=== PATIENT | female | born 1960 | race Caucasian/White ===

== ENCOUNTER 2018-08-03 13:15 | Inpatient (IN) | payer OTHER ==
[2018-08-14] MEDS ORDERED: Tranexamic Acid 1,000 MG/10 ML VIAL ONE ×2 (09:09→13:08)
[2018-08-14] MEDS ORDERED: CEFAZOLIN 2 GM/50 ML BAG ONE (09:09)
[2018-08-14] MEDS ORDERED: Sodium Chloride 0.9% 100 ML ONE (09:09)
[2018-08-14] MEDS ORDERED: Vancomycin HCl 1.5 GM in Sodium Chloride 0.9% 250 ML 300 ML IVPB SCH ×2 (09:30→22:00)
[2018-08-14] MEDS ORDERED: Levofloxacin 500 mg/D5W 100 ml Premix Bag ONE (09:54)
[2018-08-14] MEDS ORDERED: Fentanyl 100 MCG/2 ML VIAL ONE ×3 (10:06→10:35)
[2018-08-14] MEDS ORDERED: Midazolam HCl 2 mg/2 ml Vial ONE ×2 (10:06→10:13)
[2018-08-14] MEDS ORDERED: Bupivacaine PF 0.5% 30 ML VIAL ONE (10:25)
[2018-08-14] MEDS ORDERED: methylPREDNISolone Acetate 40 mg/ml Vial ONE (10:52)
[2018-08-14] MEDS ORDERED: Lidocaine 1% (PF) 30 ML VIAL ONE (10:52)
[2018-08-14] MEDS ORDERED: Ondansetron PF 4 MG/2 ML Vial IVP PRN ×2 (11:16→14:18)
[2018-08-14] MEDS ORDERED: Promethazine HCl 25 MG/ML VIAL IM PRN ×3 (11:16→14:18)
[2018-08-14] MEDS ORDERED: diphenhydrAMINE 25 MG CAP PO PRN (11:16)
[2018-08-14] MEDS ORDERED: Fentanyl 100 MCG/2 ML VIAL SLOW IVP PRN (11:16)
[2018-08-14] MEDS ORDERED: Acetaminophen 325 MG TAB PO PRN (11:16)
[2018-08-14] MEDS ORDERED: traMADol HCl 50 MG TAB PO PRN ×3 (11:16→14:18)
[2018-08-14] MEDS ORDERED: Zolpidem Tartrate 5 MG TAB PO PRN ×2 (11:16→14:18)
[2018-08-14] MEDS ORDERED: HYDROcodone/Acetaminophen 10/325 mg Tablet PO PRN ×3 (11:16→14:18)
[2018-08-14] MEDS ORDERED: SUMAtriptan Succinate 50 MG TAB PO PRN (11:19)
[2018-08-14] MEDS ORDERED: Tranexamic Acid 1,000 MG in Sodium Chloride 0.9% 100 ML IVPB SCH (11:30)
[2018-08-14] MEDS ORDERED: MAGNESIUM 200 MG PO SCH (11:30)
[2018-08-14] MEDS ORDERED: Promethazine HCl 25 MG/ML VIAL SLOW IVP PRN (13:13)
[2018-08-14] MEDS ORDERED: Ondansetron HCl/PF 4 MG/2 ML Vial IVP PRN (13:13)
[2018-08-14] MEDS ORDERED: Bupivacaine 0.25% HCL 30 ML VIAL ONE (13:20)
[2018-08-14] MEDS ORDERED: Ropivacaine 0.5% HCl/PF (150 MG/30 ML VIAL) ONE (13:20)
[2018-08-14] MEDS ORDERED: Ketorolac Tromethamine 30 MG/ML VIAL IVP SCH (14:00)
[2018-08-14] MEDS ORDERED: Ropivacaine HCl/PF 250 ML in Premix Bag 1 BAG NERVE BLCK SCH (14:18)
[2018-08-14] MEDS ORDERED: Fentanyl 100 MCG/2 ML VIAL IV PRN (14:19)
[2018-08-14] MEDS ORDERED: PHENYLEPHRINE-NS 100 MCG/ML 10 ML SYRINGE ONE (14:40)
[2018-08-14] MEDS ORDERED: Dexamethasone 20 MG/5 ML VIAL ONE (14:40)
[2018-08-14] MEDS ORDERED: ePHEDrine/0.9% NaCl/PF SYRINGE 50 mg/10 ml ONE (14:40)
[2018-08-14] MEDS ORDERED: PROPOFOL 200 MG/20 ML VIAL ONE (14:40)
[2018-08-14] MEDS ORDERED: Ondansetron PF 4 MG/2 ML Vial ONE (14:40)
--- NOTE | 2018-08-14 14:45 | OP ---
DATE OF PROCEDURE: 08/14/2018 ASSISTANTS: Jcarlos Buchanan PA PREOPERATIVE DIAGNOSIS: Bilateral knee arthritis with left being worse than the right. POSTOPERATIVE DIAGNOSIS: Bilateral knee arthritis with left being worse than the right. PROCEDURES: 1. Left total knee replacement using [employer] pinless navigation. 2. Right knee corticosteroid injection. ANESTHESIA: The patient had general anesthetic as well as a preoperative block. BLOOD LOSS: Minimal. COMPLICATIONS: None. DISPOSITION: She did go to recovery room in stable condition. IMPLANTS: To the left knee is a triathlon total knee system. The femur was a size 4 cruciate retaining femur. The tibial base plate was size 4 primary tibial base plate. We used a 4 x 9 mm CS X3 tibial bearing and an asymmetric 29 x 9 X3 patella. INDICATIONS: This is a 57-year-old female, who comes in complaining of bilateral knee arthritis with the left being worse than the right. At this time, she want to have her right knee injected and left knee replaced. PROCEDURE IN DETAIL: After verbal consent forms were explained and signed, she was taken to the operating room operative time and at this time was given general anesthetic. Once the level of the anesthesia was appropriate, the right knee was cleaned off with alcohol and 80 mg of Depo-Medrol with local was injected into the right knee without any complication. A Band-Aid was applied. We then turned our attention to the left leg. After all appropriate consent forms were explained and signed, the patient was taken back to the operating room and at this time was given general anesthetic. Once the level of anesthesia was appropriate, a well-padded tourniquet was placed on the leg, and the leg was then prepped and draped in standard surgical fashion. The limb was exsanguinated and tourniquet taken up to 300 mmHg. Midline incision was made with a 10 blade down through the skin and subcutaneous tissue. Bovie electrocautery was used to coagulate any brisk venous bleeding. A new blade was used to make a medial parapatellar arthrotomy. Small subperiosteal release was performed medially and excess fat pad was removed. The knee was flexed up to gain access to the femur. The femur was navigated and distal femoral resection was made. Epicondylar access was used to align our sizing jig and this was pinned in place. 4:1 cutting block was applied and pinned. Anterior and posterior chamfer cuts were then made. We navigated out our proximal tibia and made our proximal tibial resection. Spreaders were used to remove any posterior osteophytes off the back of the femur as well as remaining meniscal tissue. A long alignment edgardo was then used to achieve correct rotation of our tibial baseplate. This was pinned in place. We trialed the polyethylene and a polyethylene gave us full extension and good stability throughout range of motion. Two towel clips and a saw were used to cut our patella. Three lug nuts were drilled and patella was trialed which sat nicely in the trochlear groove. We then drilled our femur and punched our tibia. All components were removed. The knee was thoroughly irrigated and dried. Cement was mixed into the cement gun on the back table. Components were then placed. The knee was held out in full extension until the cement had dried. All excess bone cement was removed. Multiple #2 Vicryl stitches as well as a Quill were used to close our extensor mechanism. 0 Quill followed by a running Monoderm was then used to close the skin. Surgicel glue was then used on the skin. Once this had dried, soft tissue dressing was applied to the limb, tourniquet was let down, and the toes pinked up nicely. The patient was then awakened and taken to the recovery room in stable condition. All counts were correct at the end of the case. The patient did receive preoperative IV antibiotics. The patient was injected with Exparel for postoperative pain relief. Job ID: [id number] [facility]
[2018-08-14 15:38] VITALS: BMI 35.1
[2018-08-14] MEDS: Sodium Chloride 0.9% 1,000 ML IV SCH ×2 (15:59→23:34)
[2018-08-14] MEDS: Ketorolac Tromethamine 30 MG/ML VIAL IVP SCH ×2 (17:01→23:38)
[2018-08-14] MEDS: Aspirin 81 mg Enteric Coated Tablet PO SCH (20:24)
[2018-08-14] MEDS: TROSPIUM 20 MG TABLET PO SCH (20:26)
--- NOTE | 2018-08-15 00:43 | CON ---
DATE OF CONSULTATION: PRIMARY CARE PHYSICIAN: Alexey Carpio MD. PRIMARY TEAM: Orthopedics, Dr. Walters. REASON FOR CONSULTATION: Medical management. HISTORY OF PRESENT ILLNESS: This is a 57-year-old white female with history of progressive bilateral knee arthritis interfering with daily activity. In spite of recent weight loss after bariatric surgery, she presented today for left total knee replacement and she had a right knee steroid injection as well. She recently had RSV about three weeks ago with some coughing and congestion; however, this has all cleared by now and she has no active complaints at this time. She did have a little bit of blood pressure drop when standing after her surgery, but is doing better now. PAST MEDICAL HISTORY: 1. Hypertension. 2. Fibromyalgia. 3. Previous melanoma. 4. Migraine headaches. 5. Stress incontinence. PSYCHIATRIC HISTORY: Anxiety. SURGICAL HISTORY: 1. Tonsillectomy and adenoidectomy. 2. Skin cancer removal. 3. Cystoscopy. 4. Hysterectomy and bilateral oophorectomy. 5. Multiple breast lumpectomies. 6. EGD with esophageal dilatation in 2015. 7. Gastric sleeve in August of 2017. SOCIAL HISTORY: Patient is . She does not smoke. She drinks alcohol rarely. No illicit drugs. FAMILY HISTORY: Father is , he was diagnosed with diabetes and also had complications from melanoma, COPD. Mother . She had polymyositis rheumatica and dermatomyositis as well. Other family members have high blood pressure. ALLERGIES: 1. SULFA ANTIBIOTICS CAUSED HER TO BE HOSPITALIZED FOR 3 DAYS. 2. AUGMENTIN, BUT NOT OTHER PENICILLINS. 3. CODEINE. 4. ERYTHROMYCIN. MEDICATIONS: 1. Cranberry 400 mg daily. 2. Bisoprolol/hydrochlorothiazide 5/6.25 mg daily. 3. Vitamin D3 1000 units at night. 4. Relpax 40 mg twice a day. 5. Lexapro 20 mg daily. 6. Toviaz 4 mg daily. 7. Magnesium 200 mg every other day. 8. Protonix 40 mg daily. 9. CoQ10 200 mg daily. REVIEW OF SYSTEMS: CONSTITUTIONAL: No fevers. No change chills. She had no weight loss after bariatric surgery. EYES: No double vision or blurred vision. ENT: No congestion, drainage or sore throat. PULMONARY: No coughing, wheezing or shortness of breath. CARDIAC: No chest pain. No palpitations or racing heart. GASTROINTESTINAL: No abdominal pain. No nausea, vomiting, though she does have gastric sleeve. No current constipation or diarrhea. GENITOURINARY: No dysuria or hematuria. MUSCULOSKELETAL: See HPI. SKIN: No rashes or lesions. NEUROLOGIC: No numbness, tingling, or focal weakness. PHYSICAL EXAMINATION: VITAL SIGNS: Blood pressure 115/73, pulse 74, respirations 16, O2 saturation 97% on room air, temperature 98.2. GENERAL: This is a well-developed, obese white female in no acute distress. HEENT EXAM: Pupils equal, round, reactive to light. Oropharynx clear without lesions, erythema, or exudate. NECK: Supple. No lymphadenopathy. No thyroid nodules or enlargement. No JVD. HEART: Regular rate and rhythm. No murmurs, rubs, or gallops. LUNGS: Clear to auscultation bilaterally. No wheezes, crackles, or rhonchi. ABDOMEN: Soft, nontender to palpation. Normoactive bowel sounds. No hepatosplenomegaly or other masses. EXTREMITIES: No clubbing, cyanosis, or edema. She has a brace over her left knee where she had the surgery. SKIN: No rashes or other lesions noted. NEUROLOGIC: Intact strength and sensation in all extremities. No facial droop. ASSESSMENT AND PLAN: 1. Bilateral knee arthritis, status post left total knee replacement. 2. Hypertension. Resume patient's home medications. 3. Migraines. She can take Relpax as needed. 4. History of gastric sleeve. We will continue Protonix daily. 5. Deep venous thrombosis prophylaxis. SCD to the right leg. CODE STATUS: I did discuss with the patient. She is a full code should she be incapacitated, her will be her medical decision maker. His name is Corby Catalan. Job ID: [id number]
[2018-08-15] MEDS: Ketorolac Tromethamine 30 MG/ML VIAL IVP SCH ×4 (05:49→23:07)
[2018-08-15 06:23] LABS: Hemoglobin 11.8 g/dL (12.0-16.0); Mean Corpuscular HGB CONC 33.1 g/dL (32.0-36.0); Mean Corpuscular Volume 90.6 fL (78.0-98.0); Mean Platelet Volume 8.2 fL (7.4-10.4); Platelet Count 227 thou/uL (130-400); RBC Distribution Width 11.4 % (11.5-14.5); Red Blood Cell (RBC) Count 3.95 mill/uL (4.20-5.40); White Blood Cell (WBC) Count 12.4 thou/uL (4.8-10.8)
[2018-08-15] MEDS: Ubidecarenone 50 MG CAP PO SCH (08:01)
[2018-08-15] MEDS: Escitalopram Oxalate 20 mg Tablet PO SCH (08:02)
[2018-08-15] MEDS: Ferrous Gluconate 324 MG TAB PO SCH ×2 (08:04→16:28)
[2018-08-15] MEDS: Aspirin 81 mg Enteric Coated Tablet PO SCH ×2 (08:04→20:45)
[2018-08-15] MEDS: Senokot S 8.6-50 MG TAB PO SCH ×2 (08:05→20:45)
[2018-08-15] MEDS: Multivitamin W/ Minerals 1 TAB PO SCH (08:05)
[2018-08-15] MEDS: TROSPIUM 20 MG TABLET PO SCH ×2 (08:07→20:44)
[2018-08-15] MEDS: Sodium Chloride 0.9% 1,000 ML IV SCH ×2 (08:08→16:28)
[2018-08-15] MEDS ORDERED: Bisoprolol Fumarate/HCTZ 5 mg/6.25 mg Tablet PO SCH (09:00)
[2018-08-15] MEDS: HYDROcodone/Acetaminophen 10/325 mg Tablet PO PRN (20:49)
[2018-08-16] MEDS: Sodium Chloride 0.9% 1,000 ML IV SCH ×3 (02:54→22:09)
[2018-08-16] MEDS: Ketorolac Tromethamine 30 MG/ML VIAL IVP SCH ×2 (05:28→11:52)
[2018-08-16 08:37] LABS: Hemoglobin 10.9 g/dL (12.0-16.0); Mean Corpuscular HGB CONC 32.1 g/dL (32.0-36.0); Mean Corpuscular Hemoglobin 29.4 pg (27.0-31.0); Mean Corpuscular Volume 91.7 fL (78.0-98.0); Mean Platelet Volume 8.2 fL (7.4-10.4); Platelet Count 205 thou/uL (130-400); RBC Distribution Width 11.7 % (11.5-14.5); Red Blood Cell (RBC) Count 3.71 mill/uL (4.20-5.40)
[2018-08-16] MEDS: TROSPIUM 20 MG TABLET PO SCH ×2 (08:48→20:36)
[2018-08-16] MEDS: Multivitamin W/ Minerals 1 TAB PO SCH (08:48)
[2018-08-16] MEDS: Aspirin 81 mg Enteric Coated Tablet PO SCH ×2 (08:49→20:37)
[2018-08-16] MEDS: Escitalopram Oxalate 20 mg Tablet PO SCH (08:49)
[2018-08-16] MEDS: Ferrous Gluconate 324 MG TAB PO SCH ×2 (08:50→17:42)
[2018-08-16] MEDS: Ubidecarenone 50 MG CAP PO SCH (08:50)
[2018-08-16] MEDS: Senokot S 8.6-50 MG TAB PO SCH ×2 (08:50→20:36)
[2018-08-16] MEDS ORDERED: Bisoprolol Fumarate/HCTZ 5 mg/6.25 mg Tablet PO SCH (09:00)
[2018-08-16] MEDS: HYDROcodone/Acetaminophen 10/325 mg Tablet PO PRN ×2 (11:19→20:36)
[2018-08-16] MEDS ORDERED: Magnesium Oxide 250 MG TAB PO SCH (21:00)
[2018-08-17] MEDS: HYDROcodone/Acetaminophen 10/325 mg Tablet PO PRN (06:33)
[2018-08-17 07:38] VITALS: BP 130/84; TEMP 98.1
[2018-08-17] MEDS: TROSPIUM 20 MG TABLET PO SCH (08:12)
[2018-08-17] MEDS: Aspirin 81 mg Enteric Coated Tablet PO SCH (08:12)
[2018-08-17] MEDS: Escitalopram Oxalate 20 mg Tablet PO SCH (08:12)
--- NOTE | 2018-08-18 13:21 | DIS ---
DATE OF ADMISSION: 08/14/2018 DATE OF DISCHARGE: 08/17/2018 PREOPERATIVE DIAGNOSIS: Left knee osteoarthritis/degenerative joint disease. POSTOPERATIVE DIAGNOSIS: Left knee osteoarthritis/degenerative joint disease. PROCEDURE: The patient underwent a left total knee replacement. HOSPITAL COURSE: On hospital stay, she had a little hypotension with standing up, but by postop day 3, she was doing much better. She had no other hospital complications. She was admitted to [address], where she worked with staff, Physical Therapy, Occupational Therapy, and progressed quite well. By postop day 3, she was ready to discharge home. DISCHARGE CONDITION: Good/stable. DISPOSITION: Home with family. FOLLOWUP: Followup would be in 10 to 14 days or sooner if there are problems and/or concerns. DISCHARGE MEDICATIONS: Given with usage instructions. Job ID: [id number]
== END 2018-08-17 10:45 | disposition home or self-care (01) | DRG 470 ==
LOC: SJJU 08-14 08:41
PROVIDERS: ADMIT Orthopaedic Surgery; ATTEND Orthopaedic Surgery
PROC: 0SRD0J9 Replacement of Left Knee Joint with Synthetic Substitute, Cemented, Open Approach (ICD-10-PCS; principal; 2018-08-14)
PROC: 3E0U33Z Introduction of Anti-inflammatory into Joints, Percutaneous Approach (ICD-10-PCS; 2018-08-14)
DX: M17.0 Bilateral primary osteoarthritis of knee (principal); I10 Essential (primary) hypertension; G43.909 Migraine, unspecified, not intractable, without status migrainosus; F41.9 Anxiety disorder, unspecified; Z90.49 Acquired absence of other specified parts of digestive tract; Z90.710 Acquired absence of both cervix and uterus; Z98.890 Other specified postprocedural states; Z85.820 Personal history of malignant melanoma of skin; Z88.5 Allergy status to narcotic agent; Z88.1 Allergy status to other antibiotic agents; Z88.2 Allergy status to sulfonamides; Z79.899 Other long term (current) drug therapy
CPT/HCPCS: 36415; 82533; 85027; C1713; C1776; J1030; J1100; J1885; J1956; J2001; J2250; J2405; J2704; J2795; J3010; J3370; J7050; S0020

== ENCOUNTER 2018-08-10 15:19 | Outpatient (CLI) | payer OTHER ==
[2018-08-10 16:24] LABS: #Basophils 0.1 thou/uL (0.0-0.2); #Eosinphils 0.2 thou/uL (0.0-0.7); #Lymphocytes 3.4 thou/uL (1.20-3.40); #Monocytes 0.7 thou/uL (0.11-0.59); #Neutrophils 6.5 thou/uL (1.40-6.50); %Basophils 1.2 % (0.0-1.0); %Eosinophils 2.1 % (0.0-10.0); %Lymphocytes 30.7 % (21.0-51.0); %Monocytes 6.6 % (0.0-10.0); %Neutrophils 59.3 % (42.0-75.0); Hemoglobin 13.1 g/dL (12.0-16.0); Mean Corpuscular HGB CONC 33.1 g/dL (32.0-36.0); Mean Corpuscular Volume 90.7 fL (78.0-98.0); Mean Platelet Volume 8.5 fL (7.4-10.4); Platelet Count 271 thou/uL (130-400); RBC Distribution Width 11.5 % (11.5-14.5); Red Blood Cell (RBC) Count 4.35 mill/uL (4.20-5.40)
[2018-08-10 16:30] LABS: PTT 29.2 SEC (22.9-36.1); Prothrombin Time 13.6 SEC (12.0-14.7)
[2018-08-10 16:36] LABS: Bilirubin Negative (Negative); Blood, Urine Negative (Negative); Clarity CLEAR (Clear); Glucose, Urine (Dipstick) Negative (Negative); Leukocyte Moderate (Negative); Nitrite Negative (Negative); Protein, Urine (Dipstick) Negative (Neg-Trace); Specific Gravity, Urine 1.013 (1.002-1.036)
[2018-08-10 16:39] LABS: Bacteria/HPF None Seen HPF (None Seen); Hyaline Casts/LPF 0-3 HYALINE CAST LPF (0-3 Hyaline); Pathc Cast-AUWi Flag 0.29 (0-2.49); RBC/HPF 0-3 HPF (0-3); Squamous Epithelial 0-3 HPF (0-3)
[2018-08-10 16:45] LABS: Anion Gap 13 mmol/L (10-20); BUN (Urea Nitrogen) 20 mg/dL (9.8-20.1); Calc. Creatinine Clearance 0 mL/min (70-130); Calcium 9.5 mg/dL (7.8-10.44); Carbon Dioxide 25 mmol/L (22-29); Chloride 106 mmol/L (98-107); Estimated GFR-MDRD 72; Glucose 111 mg/dL (70-105); Potassium 3.5 mmol/L (3.5-5.1); Sodium 140 mmol/L (136-145)
== END 2018-08-10 15:20 | disposition home or self-care (01) ==
LOC: LABBT 15:19
PROVIDERS: ATTEND Orthopaedic Surgery
DX: Z01.818 Encounter for other preprocedural examination (principal); M17.12 Unilateral primary osteoarthritis, left knee
CPT/HCPCS: 80048; 81001; 85025; 85610; 85730; 86850; 86900; 86901; 87081; 93005; 93010

== ENCOUNTER 2019-07-04 05:59 | Outpatient (CLI) | payer OTHER ==
[2019-07-04 11:21] LABS: #Basophils 0.1 thou/uL (0.0-0.2); #Eosinphils 0.2 thou/uL (0.0-0.7); #Lymphocytes 2.8 thou/uL (1.20-3.40); #Monocytes 0.7 thou/uL (0.11-0.59); #Neutrophils 5.3 thou/uL (1.40-6.50); %Basophils 1.6 % (0.0-1.0); %Eosinophils 1.8 % (0.0-10.0); %Lymphocytes 31.1 % (21.0-51.0); %Monocytes 7.8 % (0.0-10.0); %Neutrophils 57.7 % (42.0-75.0); Hemoglobin 14.3 g/dL (12.0-16.0); Mean Corpuscular HGB CONC 32.2 g/dL (32.0-36.0); Mean Corpuscular Hemoglobin 30.3 pg (27.0-31.0); Mean Corpuscular Volume 94.2 fL (78.0-98.0); Mean Platelet Volume 7.7 fL (7.4-10.4); Platelet Count 264 thou/uL (130-400); RBC Distribution Width 12.3 % (11.5-14.5); White Blood Cell (WBC) Count 9.1 thou/uL (4.8-10.8)
[2019-07-04 11:27] LABS: Prothrombin Time 12.7 SEC (12.0-14.7)
[2019-07-04 11:33] LABS: Bacteria/HPF None Seen HPF (None Seen); Bilirubin Negative (Negative); Blood, Urine Negative (Negative); Clarity Clear (Clear); Glucose, Urine (Dipstick) Normal (Negative); Leukocyte 250 Leu/uL (Negative); Nitrite Negative (Negative); Protein, Urine (Dipstick) Negative (Neg-Trace); RBC/HPF 0-3 HPF (0-3); Squamous Epithelial 0-3 HPF (0-3); Urobilinogen Normal mg/dL (Less than 2)
[2019-07-04 11:48] LABS: Anion Gap 9 mmol/L (10-20); BUN (Urea Nitrogen) 14 mg/dL (9.8-20.1); Calc. Creatinine Clearance 0 mL/min (70-130); Calcium 8.9 mg/dL (7.8-10.44); Carbon Dioxide 31 mmol/L (22-29); Chloride 108 mmol/L (98-107); Estimated GFR-MDRD 82; Glucose 68 mg/dL (70-105); Potassium 4.1 mmol/L (3.5-5.1); Sodium 144 mmol/L (136-145)
--- NOTE | 2019-07-04 18:49 | EKG ---
Test Reason : Blood Pressure : / mmHG Vent. Rate : 056 BPM Atrial Rate : 056 BPM P-R Int : 188 ms QRS Dur : 078 ms QT Int : 422 ms P-R-T Axes : 051 005 036 degrees QTc Int : 407 ms Sinus bradycardia with sinus arrhythmia Anterior infarct (cited on or before 10-AUG-2018) Abnormal ECG When compared with ECG of 10-AUG-2018 15:40, No significant change was found Confirmed by REUBEN ANGEL, . SJasvir ([id number]) on 07/04/2019 6:48:53 PM Referred By: IERO Confirmed By:DR. Florian ALEXIS MD
== END 2019-07-04 06:00 | disposition home or self-care (01) ==
LOC: LABBT 05:59
PROVIDERS: ATTEND Orthopaedic Surgery
DX: Z01.818 Encounter for other preprocedural examination (principal); M17.11 Unilateral primary osteoarthritis, right knee
CPT/HCPCS: 80048; 81001; 85025; 85610; 87081; 93005; 93010

== ENCOUNTER 2021-05-21 07:50 | Outpatient (CLI) | payer OTHER | END 2021-05-21 07:51 | disposition home or self-care (01) | LOC: BICULT 07:50 | PROVIDERS: ATTEND Family Medicine | DX: R10.10 Upper abdominal pain, unspecified (principal) | CPT/HCPCS: 76705 ==

== ENCOUNTER 2023-06-09 13:48 | Outpatient (CLI) | payer OTHER | END 2023-06-09 13:49 | disposition home or self-care (01) | LOC: ULT 13:48 | PROVIDERS: ATTEND Nurse Practitioner Family | DX: E07.9 Disorder of thyroid, unspecified (principal); E04.2 Nontoxic multinodular goiter | CPT/HCPCS: 76536 ==

== ENCOUNTER 2023-07-11 13:35 | Outpatient (CLI) | payer OTHER ==
[2023-07-11 15:45] LABS: Hematocrit 44.1 % (34.9-44.5)
== END 2023-07-11 13:36 | disposition home or self-care (01) ==
LOC: LABBT 13:35
PROVIDERS: ATTEND Specialist
DX: Z01.818 Encounter for other preprocedural examination (principal); E07.9 Disorder of thyroid, unspecified
CPT/HCPCS: 85014; 93005; 93010

== ENCOUNTER 2023-07-14 08:05 | Day surgery (SDC) | payer OTHER ==
[2023-07-11 14:03] VITALS: BMI 39.2
[2023-07-14] MEDS ORDERED: PROPOFOL 20 ML ONE (09:18)
[2023-07-14] MEDS ORDERED: Lidocaine 1% (PF) 30 ML VIAL ONE (09:48)
[2023-07-14] MEDS ORDERED: EPINEPHrine 1 MG/ML VIAL ONE (09:48)
[2023-07-14] MEDS ORDERED: fentaNYL PF 100 MCG/2 ML SYRINGE ONE ×2 (09:51→10:36)
[2023-07-14] MEDS ORDERED: Acetaminophen 500 MG TAB ONE (10:11)
[2023-07-14] MEDS ORDERED: Ondansetron PF 4 MG/2 ML Vial ONE ×2 (10:24→10:35)
[2023-07-14] MEDS ORDERED: Lidocaine 1% PF 5 ML VIAL ONE (10:24)
[2023-07-14] MEDS ORDERED: Dexamethasone 20 MG/5 ML VIAL ONE ×2 (10:24→10:35)
[2023-07-14] MEDS ORDERED: PROPOFOL 200 MG/20 ML VIAL ONE (10:24)
[2023-07-14] MEDS ORDERED: Rocuronium Bromide 10 MG/ML (10ML VIAL) ONE (10:24)
[2023-07-14] MEDS ORDERED: Glycopyrrolate 0.2 MG/ML 5 ML SYRINGE ONE (10:24)
[2023-07-14] MEDS ORDERED: NEOSTIGMINE 3 MG/3 ML SYR 3 MG/3 ML SYRINGE ONE (10:24)
[2023-07-14] MEDS ORDERED: Mineral Oil Sterile 10 ML VIAL ONE (10:26)
[2023-07-14] MEDS ORDERED: Dexmedetomidine 200 MCG/2 ML VIAL ONE (10:35)
[2023-07-14] MEDS ORDERED: fentaNYL 50 mcg/mL 1 mL Vial ONE (12:32)
[2023-07-14] MEDS ORDERED: HYDROcodone/Acetaminophen 5/325 mg Tablet ONE (13:32)
== END 2023-07-14 14:45 | disposition home or self-care (01) ==
LOC: SDC 08:05
PROVIDERS: ATTEND Specialist
PROC: 0GTG4ZZ Resection of Left Thyroid Gland Lobe, Percutaneous Endoscopic Approach (ICD-10-PCS; principal; 2023-07-14)
DX: D34 Benign neoplasm of thyroid gland (principal); E07.9 Disorder of thyroid, unspecified; E04.1 Nontoxic single thyroid nodule; I10 Essential (primary) hypertension; G43.909 Migraine, unspecified, not intractable, without status migrainosus; F41.9 Anxiety disorder, unspecified; Z88.2 Allergy status to sulfonamides; Z90.49 Acquired absence of other specified parts of digestive tract; Z98.890 Other specified postprocedural states; Z98.84 Bariatric surgery status; Z96.653 Presence of artificial knee joint, bilateral; Z90.710 Acquired absence of both cervix and uterus; Z79.899 Other long term (current) drug therapy
CPT/HCPCS: 88307; 88331; C1889; J0171; J1100; J2001; J2405; J2704; J3010

== ENCOUNTER 2023-08-18 10:30 | Day surgery (SDC) | payer BC ==
[2023-08-16 16:47] VITALS: BMI 38.2
[2023-08-18] MEDS ORDERED: PROPOFOL 20 ML ONE (11:30)
[2023-08-18] MEDS ORDERED: fentaNYL PF 100 MCG/2 ML SYRINGE ONE (11:30)
[2023-08-18] MEDS ORDERED: EPINEPHrine 1 MG/ML VIAL ONE (11:30)
[2023-08-18] MEDS ORDERED: Lidocaine 1% PF 5 ML VIAL ONE (11:31)
[2023-08-18] MEDS ORDERED: Ondansetron PF 4 MG/2 ML Vial ONE (11:32)
[2023-08-18] MEDS ORDERED: Dexamethasone 20 MG/5 ML VIAL ONE (11:32)
[2023-08-18] MEDS ORDERED: Lidocaine 2% 6 ML (Jelly) SYR ONE (11:44)
[2023-08-18] MEDS ORDERED: Rocuronium Bromide 10 MG/ML (10ML VIAL) ONE (12:11)
[2023-08-18] MEDS ORDERED: SUGAMMADEX SODIUM 200 MG/2 ML VIAL ONE ×2 (12:11→12:25)
== END 2023-08-18 15:00 | disposition home or self-care (01) ==
LOC: SDC 10:30
PROVIDERS: ATTEND Specialist
PROC: 3E0F8GC Introduction of Other Therapeutic Substance into Respiratory Tract, Via Natural or Artificial Opening Endoscopic (ICD-10-PCS; principal; 2023-08-18)
DX: J38.01 Paralysis of vocal cords and larynx, unilateral (principal); I10 Essential (primary) hypertension; G43.909 Migraine, unspecified, not intractable, without status migrainosus; F41.9 Anxiety disorder, unspecified; Z98.890 Other specified postprocedural states; Z90.710 Acquired absence of both cervix and uterus; Z96.653 Presence of artificial knee joint, bilateral; Z90.89 Acquired absence of other organs; Z88.2 Allergy status to sulfonamides; Z88.5 Allergy status to narcotic agent; Z88.1 Allergy status to other antibiotic agents; Z79.899 Other long term (current) drug therapy
CPT/HCPCS: C1776; J0171; J1100; J2405; J2704